=== PATIENT | female | born 1975 | race Caucasian/White ===

== ENCOUNTER 2017-08-24 14:33 | Emergency (ER) | payer OTHER ==
[2017-08-24 14:33] VITALS: BMI 34.0
[2017-08-24 14:57] VITALS: RESP 18
[2017-08-24] MEDS ORDERED: Sodium Chloride 0.9% 500 ML IV ONE ×2 (15:37→15:54)
[2017-08-24] MEDS ORDERED: Aluminum Hydroxide/Magnesium Hydroxide Susp (30 mL) PO STA (15:38)
[2017-08-24 15:48] LABS: SQUAMOUS EPITHIAL 5 /hpf (0-5); URINE BILIRUBIN NEGATIVE (NEGATIVE); URINE BLOOD NEGATIVE (NEGATIVE); URINE CLARITY Hazy (Clear); URINE COLOR Straw (YELLOW); URINE GLUCOSE (UA) NORMAL (Normal); URINE LEUKOCYTE ESTERASE 3+ Leu/uL (Negative); URINE PROTEIN NEGATIVE (NEGATIVE); URINE UROBILINOGEN NORMAL mg/dL (0.2-1.0)
[2017-08-24 15:56] LABS: BASO # 0.1 K/uL (0.0-0.2); BASO % 0.7 % (0.0-2.0); EOS # 0.7 K/uL (0.0-0.7); HEMOGLOBIN 14.6 g/dL (11.0-16.0); LYMPH # 2.3 K/uL (1.0-4.3); LYMPH % 24.2 % (20.0-40.0); MEAN CORPUSCULAR HEMOGLOBIN 33.7 pg (27.0-31.0); MEAN CORPUSCULAR HGB CONC 34.7 g/dL (33.0-37.0); MEAN PLATELET VOLUME 7.4 fL (7.2-11.7); MONO # 0.5 K/uL (0.0-0.8); MONO % 5.7 % (0.0-10.0); NEUT # 5.9 K/uL (1.8-7.0); NEUT % 62.4 % (50.0-75.0); NRBC % 0.2 % (0.0-2.0); RBC 4.35 Mil/uL (3.80-5.20); RED CELL DISTRIBUTION WIDTH 12.6 % (11.5-14.5); WHITE BLOOD COUNT 9.4 K/uL (4.8-10.8)
--- NOTE | 2017-08-24 16:11 | RAD ---
PROCEDURE: Radiographs of the chest and abdomen (obstructive series) HISTORY: pain COMPARISON: No prior. TECHNIQUE: AP radiograph of the chest, with upright and supine radiographs of the abdomen. FINDINGS: CHEST: Lungs: The lungs are well inflated and clear. Cardiovascular: Normal size heart. No pulmonary vascular congestion. Pleura: No pleural fluid. No pneumothorax. Other findings: None. ABDOMEN AND PELVIS: Bowel: There is large amount of stool in the colon. No bowel dilatation or obstruction. Free air: None. Bones: Unremarkable. Other findings: An IUD overlies the pelvis. IMPRESSION: Constipation. No evidence of mechanical bowel obstruction. Clear lungs.
[2017-08-24] MEDS ORDERED: Aluminum Hydroxide/Magnesium Hydroxide Susp (30 mL) ONE (16:15)
[2017-08-24 16:19] LABS: ALB/GLOB RATIO 1.3 (1.0-2.1); ALT/SGPT 21 U/L (9-52); AST/SGOT 24 U/L (14-36); BLOOD UREA NITROGEN 12 mg/dL (7-17); CALCIUM 9.2 mg/dl (8.6-10.4); GFR AFRICAN-AMERICAN > 60; GFR NON-AFRICAN AMERICAN > 60; LIPASE 108 U/L (23-300)
[2017-08-24 16:34] VITALS: BP 111/72; PULSE 71; TEMP 97.7; O2SAT 98
--- NOTE | 2017-08-24 16:56 | C.PDOC ---
History Of Present Illness 42-year-old female, presents to the emergency department with complaints of abdominal pain. Patient notes drinking a soda at 06:00 this morning, after which she developed epigastric abdominal pain. Patient denies prior Hx of GERD/ gastritis. Patient denies nausea/vomiting, fevers, chest pain, sob, symptoms or change in bowel habits. Time Seen by Provider: 08/24/17 15:12 Chief Complaint (Nursing): Abdominal Pain History Per: Patient History/Exam Limitations: no limitations Onset/Duration Of Symptoms: Hrs Current Symptoms Are (Timing): Still Present Severity: Moderate Location Of Pain/Discomfort: Epigastric Past Medical History Reviewed: Historical Data, Nursing Documentation, Vital Signs Vital Signs: Last Vital Signs Temp 97.7 F 08/24/17 16:33 Pulse 71 08/24/17 16:33 Resp 18 08/24/17 16:33 BP 111/72 08/24/17 16:33 Pulse Ox 98 08/24/17 20:03 - [facility] Procedures OTHER SKIN & SUBQ I D (05/11/13) Family History: States: No Known Family Hx - Social History Hx Tobacco Use: No Hx Alcohol Use: No Hx Substance Use: No - Immunization History Hx Tetanus Toxoid Vaccination: No Hx Influenza Vaccination: No Hx Pneumococcal Vaccination: No Review Of Systems Constitutional: Negative for: Fever, Chills Cardiovascular: Negative for: Chest Pain Respiratory: Negative for: Cough, Shortness of Breath Gastrointestinal: Positive for: Abdominal Pain. Negative for: Nausea, Vomiting Genitourinary: Negative for: Dysuria, Hematuria, Vaginal Discharge, Vaginal Bleeding Musculoskeletal: Negative for: Back Pain Skin: Negative for: Rash Neurological: Negative for: Weakness, Numbness, Headache, Dizziness Physical Exam - Physical Exam Appears: Well, Non-toxic, No Acute Distress Skin: Normal Color, Warm, Dry, No Rash Head: Atraumatic, Normacephalic Eye(s): bilateral: Normal Inspection, EOMI Nose: Normal Oral Mucosa: Moist Lips: Normal Appearing Neck: Normal ROM, Supple Chest: Symmetrical Cardiovascular: Rhythm Regular Respiratory: Normal Breath Sounds, No Accessory Muscle Use Gastrointestinal/Abdominal: Soft, Tenderness (epigastric), No Guarding, No Rebound Back: No CVA Tenderness, No Vertebral Tenderness Extremity: Normal ROM Neurological/Psych: Oriented x3, Normal Speech ED Course And Treatment - Laboratory Results Result Diagrams: 08/24/17 15:52 08/24/17 15:52 O2 Sat by Pulse Oximetry: 98 (RA) Pulse Ox Interpretation: Normal Progress Note: Bloodwork, UA/HCG, urine culture ordered and reviewed. Patient treated with Pepcid, Zofran and Maalox. On re-evaluation, patient is resting comfortably, abdomen remains soft, and patient is tolerating PO. Abdominal pain resolved. Pt instructed to follow up with PMD in 1-2 days or return to ER if symptoms persist or worsen. Disposition - Disposition Disposition: HOME/ ROUTINE Disposition Time: 16:54 Condition: STABLE Additional Instructions: Follow up with your primary medical doctor or clinic in 2-5 days for further evaluation. Take medications as prescribed. Return to the emergency department at any time if symptoms persist or worsen. Prescriptions: Calcium Carbonate/Simethicone [Maalox Advanced 1000 mg-60 mg] 1 ctb PO BID PRN # 20 ctb PRN Reason: Gi Distress Psyllium Husk [Metamucil] 1.7 gm PO DAILY #1 powder Sulfamethoxazole/Trimethoprim [Bactrim DS 800 mg-160 mg] 1 tab PO BID #10 tab Instructions: Constipation, Adult (DC) Forms: [facility] (Malaysian) - Clinical Impression Clinical Impression: Constipation, UTI (urinary tract infection), Abdominal pain - Scribe Statement The provider has reviewed the documentation as recorded by the Scribe (Laney Rachel) All medical record entries made by the Scribe were at my direction and personally dictated by me. I have reviewed the chart and agree that the record accurately reflects my personal performance of the history, physical exam, medical decision making, and the department course for this patient. I have also personally directed, reviewed, and agree with the discharge instructions and disposition.
== END 2017-08-24 17:02 | disposition home or self-care (01) ==
LOC: C.ER 14:33
DX: N39.0 Urinary tract infection, site not specified (principal); K59.00 Constipation, unspecified; R10.13 Epigastric pain
CPT/HCPCS: 74022; 80053; 81001; 83690; 84703; 85025; 87086; 96361; 96374; 99284; J7040

== ENCOUNTER 2018-03-13 12:05 | Emergency (ER) | payer OTHER ==
[2018-03-13 12:05] VITALS: BMI 34.0
--- NOTE | 2018-03-13 12:25 | C.PDOC ---
History Of Present Illness 43 year old female, with no PMHx, presents to the emergency department with complaints of right-sided chest pain since this morning. Patient states she was sitting down when she suddenly felt like she pulled a muscle. She reports she lifted a heavy object today after the pain started and did not take any pain medications. Patient denies eating anything spicy, trauma, SOB, diaphoresis, dizziness, palpitations, nausea, or vomiting. History Per: Patient History/Exam Limitations: no limitations Onset/Duration Of Symptoms: Hrs Current Symptoms Are (Timing): Still Present Severity: Moderate Pain Scale Rating Of: 5 Quality: "Pain" Past Medical History Reviewed: Historical Data, Nursing Documentation, Vital Signs Vital Signs: Last Vital Signs Temp 98.2 F 03/13/18 14:27 Pulse 72 03/13/18 14:27 Resp 18 03/13/18 14:27 BP 114/67 03/13/18 14:27 Pulse Ox 100 03/13/18 14:27 - [facility] Procedures OTHER SKIN & SUBQ I D (05/11/13) Family History: States: No Known Family Hx - Social History Hx Tobacco Use: No Hx Alcohol Use: No Hx Substance Use: No - Immunization History Hx Tetanus Toxoid Vaccination: No Hx Influenza Vaccination: No Hx Pneumococcal Vaccination: No Review Of Systems Except As Marked, All Systems Reviewed And Found Negative. Constitutional: Negative for: Fever, Chills, Sweats Cardiovascular: Positive for: Chest Pain (right-sided). Negative for: Palpitations Respiratory: Negative for: Shortness of Breath Gastrointestinal: Negative for: Nausea, Vomiting Neurological: Negative for: Weakness, Numbness, Dizziness Physical Exam - Physical Exam Appears: Non-toxic, No Acute Distress Skin: Normal Color, Warm, Dry Head: Atraumatic, Normacephalic Eye(s): bilateral: Normal Inspection Oral Mucosa: Moist Chest: Symmetrical, No Deformity, No Tenderness, Other (nonreproducible pain of the R lateral sternal border) Cardiovascular: Rhythm Regular, No Murmur Respiratory: Normal Breath Sounds, No Rales, No Rhonchi, No Wheezing Gastrointestinal/Abdominal: Normal Exam, Soft, No Tenderness Back: Normal Inspection Extremity: Normal ROM Neurological/Psych: Oriented x3, Normal Speech Gait: Steady ED Course And Treatment - Laboratory Results Result Diagrams: 03/13/18 13:30 09/23/18 13:30 Interpretation Of ECG: Normal sinus rhythm. Rate From EC O2 Sat by Pulse Oximetry: 97 (RA) Pulse Ox Interpretation: Normal - Radiology CXR: Interpreted by Me CXR Interpretation: Yes: No Acute Disease Reassessment Condition: Improved (on re-evaluation pt states her pain has improved, no sob) Medical Decision Making Medical Decision Making: Impression: Chest Pain Plan: -EKG -Labs -Toradol 30 mg IVP Disposition Counseled Patient/Family Regarding: Studies Performed, Diagnosis, Need For Followup, Rx Given - Disposition Referrals: Cesia Norman MD [Staff Provider] - Disposition: HOME/ ROUTINE Disposition Time: 14:14 Condition: STABLE Additional Instructions: FOLLOW UP WITH DR. NORMAN TOMORROW FOR RE-EVALUATION. OFFICIAL CHEST XRAY IS PENDING. IF SYMPTOMS GET WORSE OR ANY NEW CONCERNING SYMPTOMS DEVELOP RETURN TO ED. Prescriptions: Ibuprofen [Motrin Tab] 1 tab PO Q6H PRN #15 tab PRN Reason: Pain, Moderate (4-7) Instructions: Chest Pain That Is Not Caused by the Heart (DC) Forms: General Discharge Instructions - Clinical Impression Clinical Impression: Chest pain
[2018-03-13 13:43] LABS: BASO % 0.4 % (0.0-2.0); EOS # 0.3 K/uL (0.0-0.7); EOS % 3.7 % (0.0-4.0); LYMPH # 2.1 K/uL (1.0-4.3); LYMPH % 28.9 % (20.0-40.0); MEAN CELL VOLUME 97.7 fL (81.0-99.0); MEAN CORPUSCULAR HEMOGLOBIN 34.2 pg (27.0-31.0); MEAN CORPUSCULAR HGB CONC 34.9 g/dL (33.0-37.0); MEAN PLATELET VOLUME 7.8 fL (7.2-11.7); MONO # 0.5 K/uL (0.0-0.8); NEUT # 4.4 K/uL (1.8-7.0); NRBC % 0.1 % (0.0-2.0); RBC 4.11 Mil/uL (3.80-5.20); RED CELL DISTRIBUTION WIDTH 13.2 % (11.5-14.5); WHITE BLOOD COUNT 7.3 K/uL (4.8-10.8)
[2018-03-13 13:59] LABS: ALB/GLOB RATIO 1.5 (1.0-2.1); ALBUMIN 4.3 g/dL (3.5-5.0); ALT/SGPT 27 U/L (9-52); AST/SGOT 18 U/L (14-36); BLOOD UREA NITROGEN 12 mg/dL (7-17); CALCIUM 9.5 mg/dl (8.6-10.4); GFR NON-AFRICAN AMERICAN > 60; LIPASE 90 U/L (23-300)
[2018-03-13 14:27] VITALS: BP 114/67; PULSE 72; RESP 18; TEMP 98.2
--- NOTE | 2018-03-13 14:34 | RAD ---
Date of service: 03/13/2018 HISTORY: Chest pain COMPARISON: No prior. FINDINGS: LUNGS: The lungs are well inflated and clear. PLEURA: No significant pleural effusion identified, no pneumothorax apparent. CARDIOVASCULAR: Normal. OSSEOUS STRUCTURES: No significant abnormalities. VISUALIZED UPPER ABDOMEN: Normal. OTHER FINDINGS: None. IMPRESSION: No active pulmonary disease.
[2018-03-13 15:22] VITALS: O2SAT 97
--- NOTE | 2018-03-14 19:31 | CARD ---
APPROVED REPORT Date of service: 03/13/2018 EKG Measurement Heart [id number] 130P21 [id number] <Conclusion> Normal sinus rhythm Normal ECG
== END 2018-03-13 14:28 | disposition home or self-care (01) ==
LOC: C.ER 12:05
DX: R07.9 Chest pain, unspecified (principal)
CPT/HCPCS: 71045; 80053; 83690; 84484; 84703; 85025; 93005; 96374; 99284; J1885

== ENCOUNTER 2018-11-12 09:52 | Emergency (ER) | payer OTHER ==
[2018-11-12 09:52] VITALS: BMI 34.0
[2018-11-12 10:58] LABS: BASO % 0.4 % (0.0-2.0); EOS # 0.1 K/uL (0.0-0.7); EOS % 2.8 % (0.0-4.0); LYMPH # 1.9 K/uL (1.0-4.3); LYMPH % 38.1 % (20.0-40.0); MEAN CELL VOLUME 97.7 fL (81.0-99.0); MEAN CORPUSCULAR HEMOGLOBIN 33.8 pg (27.0-31.0); MEAN CORPUSCULAR HGB CONC 34.7 g/dL (33.0-37.0); MEAN PLATELET VOLUME 7.7 fL (7.2-11.7); MONO # 0.4 K/uL (0.0-0.8); MONO % 7.5 % (0.0-10.0); NEUT # 2.6 K/uL (1.8-7.0); NEUT % 51.2 % (50.0-75.0); NRBC % 0.1 % (0.0-2.0); RBC 4.13 Mil/uL (3.80-5.20); RED CELL DISTRIBUTION WIDTH 13.1 % (11.5-14.5); WHITE BLOOD COUNT 5.1 K/uL (4.8-10.8)
--- NOTE | 2018-11-12 11:05 | C.PDOC ---
History Of Present Illness 43 y.o. female with a history of arthritis presents for evaluation of left sided chest pain after she "got up abruptly" this morning. The pt describes the pain as sharp and notes she is "unsure if it feels like muscle pain". Pt denies cardiac hx or stress. Denies numbness, tingling, fever, chills, or any other associated symptoms. Time Seen by Provider: 11/12/18 10:19 Chief Complaint (Nursing): Chest Pain History Per: Patient History/Exam Limitations: no limitations Onset/Duration Of Symptoms: Hrs Current Symptoms Are (Timing): Still Present Quality: Sharp Recent travel outside of the [place]: No Past Medical History Reviewed: Historical Data, Nursing Documentation, Vital Signs Vital Signs: Last Vital Signs Temp 98.8 F 11/12/18 09:57 Pulse 87 11/12/18 09:57 Resp 16 11/12/18 09:57 BP 112/75 11/12/18 09:57 Pulse Ox 97 11/12/18 09:57 Primary Care Provider: Non [facility] Provider, - [facility] Procedures OTHER SKIN & SUBQ I D (05/11/13) Family History: States: Unknown Family Hx - Social History Hx Tobacco Use: No Hx Alcohol Use: No Hx Substance Use: No - Immunization History Hx Tetanus Toxoid Vaccination: No Hx Influenza Vaccination: No Hx Pneumococcal Vaccination: No Review Of Systems Constitutional: Negative for: Fever, Chills Cardiovascular: Positive for: Chest Pain (left-sided.) Neurological: Negative for: Weakness, Numbness, Incoordination Physical Exam - Physical Exam Appears: Non-toxic, No Acute Distress Skin: Warm, Dry Head: Atraumatic, Normacephalic Eye(s): bilateral: Normal Inspection Oral Mucosa: Moist Neck: Normal ROM, Supple Chest: Symmetrical, No Deformity Cardiovascular: Rhythm Regular, No Murmur Respiratory: Normal Breath Sounds, No Rales, No Rhonchi, No Wheezing Gastrointestinal/Abdominal: Normal Exam, Soft, No Tenderness Extremity: Bilateral: Atraumatic, Normal Color And Temperature, Normal ROM, O ther (Chest pain worse with upper extremity ROM. ) Neurological/Psych: Oriented x3, Normal Speech, Normal Cognition ED Course And Treatment - Laboratory Results Result Diagrams: 11/12/18 10:50 11/12/18 10:50 ECG: Interpreted By Me, Viewed By Me ECG Rhythm: Sinus Rhythm Interpretation Of ECG: no STQ wave changes Rate From EC O2 Sat by Pulse Oximetry: 97 (RA) Pulse Ox Interpretation: Normal Medical Decision Making Medical Decision Making: atypiocal pain r/o acs- labs cxr reasesss Initial plan: -EKG -Blood sent. -CXR -Tylenol -Urinalysis Progress/Update: pain resolved in er, as pt pain <6 hours onset from 1st trop, requests obs for 2nd trop. declines as has to take care of child states will return with worsening. perc neg Pt stable for discharge home. Prescribed Motrin. Advised to follow up with PMD or return to the ED if symptoms worsen. Disposition - Disposition Disposition: HOME/ ROUTINE Disposition Time: 11:42 Condition: STABLE Additional Instructions: you are declining observation in hospiatr return to er with worsening Instructions: Chest Pain Forms: [facility] (Spanish) - Clinical Impression Clinical Impression: Chest pain - Scribe Statement The provider has reviewed the documentation as recorded by the Scribe (Graciela Kent) Provider Attestation: All medical record entries made by the Scribe were at my direction and personally dictated by me. I have reviewed the chart and agree that the record accurately reflects my personal performance of the history, physical exam, me dical decision making, and the department course for this patient. I have also personally directed, reviewed, and agree with the discharge instructions and disposition.
[2018-11-12 11:10] LABS: SQUAMOUS EPITHIAL 7 /hpf (0-5); URINE BACTERIA RARE (<OCC)
[2018-11-12 11:11] LABS: ALB/GLOB RATIO 1.7 (1.0-2.1); ALBUMIN 4.6 g/dL (3.5-5.0); ALT/SGPT 32 U/L (9-52); AST/SGOT 25 U/L (14-36); BLOOD UREA NITROGEN 13 mg/dL (7-17); CALCIUM 8.9 mg/dl (8.6-10.4); GFR NON-AFRICAN AMERICAN > 60; PARTIAL THROMBOPLASTIN TIME 29.4 SECONDS (21-34); PROTHROMBIN TIME 11.3 SECONDS (9.7-12.2)
[2018-11-12 11:15] LABS: URINE BILIRUBIN NEGATIVE (NEGATIVE); URINE BLOOD NEGATIVE (NEGATIVE); URINE CLARITY Hazy (Clear); URINE COLOR Yellow (YELLOW); URINE GLUCOSE (UA) NORMAL (Normal); URINE LEUKOCYTE ESTERASE 2+ Leu/uL (Negative); URINE PROTEIN NEGATIVE (NEGATIVE); URINE UROBILINOGEN NORMAL mg/dL (0.2-1.0)
[2018-11-12 12:05] VITALS: BP 104/69; PULSE 65; RESP 18; TEMP 97.6; O2SAT 100
--- NOTE | 2018-11-13 16:40 | RAD ---
Date of service: 11/12/2018 HISTORY: chest pain COMPARISON: No prior. TECHNIQUE: Chest PA and lateral views FINDINGS: LUNGS: No active pulmonary disease. PLEURA: No significant pleural effusion identified. No pneumothorax apparent. CARDIOVASCULAR: No aortic atherosclerotic calcification present. Normal cardiac size. No pulmonary vascular congestion. OSSEOUS STRUCTURES: No significant abnormalities. VISUALIZED UPPER ABDOMEN: Normal. OTHER FINDINGS: None. IMPRESSION: No active disease.
--- NOTE | 2018-11-16 00:13 | CARD ---
APPROVED REPORT Date of service: 11/12/2018 EKG Measurement Heart [id number] OR 132P58 [id number] <Conclusion> Normal sinus rhythm Septal infarct, age undetermined Abnormal ECG
== END 2018-11-12 12:05 | disposition home or self-care (01) ==
LOC: C.ER 09:52
DX: R07.9 Chest pain, unspecified (principal)